=== PATIENT | male | born 1990 | race Caucasian/White ===

== ENCOUNTER 2019-09-18 14:34 | Emergency (ER) | payer MEDICAID, SELFPAY ==
[2019-09-18 15:10] VITALS: BP 140/76; PULSE 102; RESP 20; TEMP 36.6; O2SAT 100; BMI 26.6
--- NOTE | 2019-09-18 15:30 | HMH.EDUTC ---
[facility] [place] Disposition Clinical Impression: Pain, dental Disposition: Home, Self-Care Condition on Discharge: Good Instructions: DI for Dental Pain, Ibuprofen Additional Instructions: Take medication as prescribed by your dentist however you had a Torodol shot in the [facility] today which is similar to Ibuprofen so do not take any Ibuprofen for the next 8-10 hours at least 11pm tonight *Use dental balls as prescribed *Followup with Dentist as scheduled on Saturday Return if needed Follow up with Family doctor if needed Straight to ER if any life threatening symptoms Referrals: Provider,Referral, MD [Primary Care Provider] - As needed Time of Disposition: 15:40 Medical Decision Making - Jose Inquiry Pt receiving controlled substance: No Jose was queried for this patient: No Vital Signs: 09/18/19 15:10 Temperature 97.8 F Temperature Source Oral Pulse Rate [Right Brachial] 102 H Respiratory Rate 20 Blood Pressure [Right Arm] 140/76 Blood Pressure Mean [Right Arm] 97 Blood Pressure Source [Right Arm] Automatic Cuff Blood Pressure Position [Right Arm] Sitting 02 Sat by Pulse Oximetry 100 Oxygen Delivery Method Room Air Orders (Tests/Meds): ED MEDICATIONS Discontinued Medications Generic Name Dose Route Start Last Admin Trade Name Freq PRN Reason Stop Dose Admin Benzocaine/Butamben/Tetracaine HCl 1 gm 09/18/19 15:32 09/18/19 15:44 Cetacaine [place] TP 09/18/19 15:33 1 gm ONCE ONE Administration Ketorolac Tromethamine 60 mg 09/18/19 15:32 09/18/19 15:44 Toradol 60mg/2ml Vial IM 09/18/19 15:33 60 mg ONCE ONE Administration Lidocaine HCl 15 ml 09/18/19 15:32 09/18/19 15:44 Lidocaine 2% Viscous Solution 15ml Udc PO 09/18/19 15:33 15 ml ONCE ONE Administration - Reevaluation(s) Time: 15:33 Reevaluation #1: Patient reports last dose of Ibuprofen at 230am this morning Patient educated that Torodol and Ibuprofen similar to not take Ibuprofen until 11pm tonight or later [facility] [place] HPI - General Stated complaint: INFECTED TOOTH Time Seen by Provider: 09/18/19 15:30 Mode of Arrival: Ambulatory Source of Information: Patient Limitations: No Limitations Description of Symptoms (Recalled from Triage Doc. by RN): PATIENT STATES HE BROKE A QUENTIN IN HIS MOUTH AND STATES HE IS IN A LOT OF PAIN HEENT Symptoms (Recalled from RN notes): Yes Resp Symptoms (Recalled from RN notes): No Skin Symptoms (Recalled from RN notes): No MS Symptoms (Recalled from RN notes): No Functional Status (Recalled from RN notes): WNL - History of Present Illness Provider Complaint: Patient states that he has been undergoing the process for dental implants and yesterday he bite into some food and broke the quentin used to hold the tooth in place States that he went to the dentist and they give him Ibuprofen and PCN but he said he needs something stronger to help with pain States last time he took Ibuprofen was at 230 this morning - Related Data Home Medications Medication Instructions Recorded Confirmed Ibuprofen [Ibuprofen 800mg 800 mg PO Q6HP PRN 09/18/19 09/18/19 Tablet] Penicillin V Potassium 500 mg PO Q6H 09/18/19 09/18/19 Allergies Allergy/AdvReac Type Severity Reaction Status Date / Time No Known Allergies Allergy Verified 09/18/19 15:18 - Worker's Comp Is this a Worker's Comp case?: No [facility] History - Hepatitis A Screen Drug use history?: No High risk sexual behaviors?: No History of sexually transmitted infection?: No Currently employed?: No Childcare worker?: No Do you have indoor plumbing?: Yes Do you have electricity?: Yes Attestation statement:: This patient has been screened for Hepatitis A risk factors. I have reviewed the patient's past medical history: Yes - Social History Smoking Status: Current every day smoker Tobacco Type: cigarettes # Packs/Day (cigarettes): 1 Alcohol Intake: current Occupational Status: other ROS Obtained: Yes All systems reviewed & no
[2019-09-18 15:51] VITALS: BP 140/76; PULSE 102; RESP 20; TEMP 36.6; O2SAT 100
== END 2019-09-18 15:56 | disposition home or self-care (01) ==
PROVIDERS: Emergency Provider Nurse Practitioner
DX: K08.89 Other specified disorders of teeth and supporting structures (principal)
CPT/HCPCS: 96372; 99201

== ENCOUNTER 2019-12-23 13:16 | Emergency (ER) | payer MEDICAID, SELFPAY ==
[2019-12-23 13:28] VITALS: BP 137/78; PULSE 78; RESP 18; TEMP 36.6; O2SAT 98; BMI 27.3
--- NOTE | 2019-12-23 13:35 | HMH.EDUTC ---
[facility] [place] Disposition Clinical Impression: Exposure to COVID-19 virus Disposition: Home, Self-Care Condition on Discharge: Good Instructions: Preventing the Spread of Coronavirus Discharge Instructions Additional Instructions: Follow up with your regular doctor. GO TO THE ER FOR ANY WORSENING SYMPTOMS FOLLOW THE DIRECTIONS ON THE COVID-19 HAND OUT THAT WE GAVE YOU REGARDING SELF-ISOLATION UNTIL YOU KNOW YOUR COVID-19 RESULTS Referrals: Anam Owens [Primary Care Provider] - Forms: Work/School Release Time of Disposition: 13:36 Medical Decision Making - Medical Records Medical records reviewed: No: I reviewed the patient's medical records. - Jose Inquiry Pt receiving controlled substance: No Vital Signs: 12/23/19 13:28 12/23/19 13:53 Temperature 97.9 F 97.9 F Temperature Source Oral Pulse Rate 78 Pulse Rate [Right Radial] 78 Respiratory Rate 18 18 Blood Pressure 137/78 Blood Pressure [Right Arm] 137/78 Blood Pressure Mean [Right Arm] 97 Blood Pressure Source [Right Arm] Automatic Cuff Blood Pressure Position [Right Arm] Sitting 02 Sat by Pulse Oximetry 98 Oxygen Delivery Method Room Air Room Air [facility] [place] HPI - General Stated complaint: covid exposure Time Seen by Provider: 12/23/19 13:35 Mode of Arrival: Ambulatory Limitations: No Limitations Description of Symptoms (Recalled from Triage Doc. by RN): Pt reports he was exposed to covid on Saturday. Pt denies covid symptoms. HEENT Symptoms (Recalled from RN notes): No Resp Symptoms (Recalled from RN notes): No Skin Symptoms (Recalled from RN notes): No MS Symptoms (Recalled from RN notes): No Functional Status (Recalled from RN notes): n/a - History of Present Illness Provider Complaint: He is here to have a covid test. He was exposed thru his work approx 4 days ago. He has been coughing, but he thinks he may have allergies. - Related Data Home Medications Medication Instructions Recorded Confirmed No Known Home Medications 12/23/19 12/23/19 Allergies Allergy/AdvReac Type Severity Reaction Status Date / Time No Known Allergies Allergy Verified 09/18/19 15:18 - Worker's Comp Is this a Worker's Comp case?: No [facility] History - Hepatitis A Screen Drug use history?: No High risk sexual behaviors?: No History of sexually transmitted infection?: No Currently employed?: No Childcare worker?: No Do you have indoor plumbing?: Yes Do you have electricity?: Yes Attestation statement:: This patient has been screened for Hepatitis A risk factors. I have reviewed the patient's past medical history: Yes - Social History Smoking Status: Current every day smoker Tobacco Type: cigarettes # Packs/Day (cigarettes): 1 Alcohol Intake: never Occupational Status: employed ROS Obtained: Yes All systems reviewed & no additional complaints - Constitutional Constitutional: Denies chills, Denies fever(s) - Eyes Eyes: Denies eye discharge - ENT Ears, Nose, Mouth, and Throat: Reports as per HPI - Cardiovascular Cardiovascular: Denies chest pain - Respiratory Respiratory: Yes cough Physical Exam - General General appearance: alert, in no apparent distress - Head Head exam: atraumatic, normocephalic, normal inspection - Eye Eye exam: Present: normal appearance, PERRL, EOMI - ENT ENT exam: Present: normal exam, normal oropharynx, mucous membranes moist, TM's normal bilaterally, normal external ear exam - Neck Neck exam: Present: normal inspection, full ROM, trachea midline. Absent: meningismus, lymphadenopathy - Chest Chest inspection: Present: normal inspection, symmetric chest wall rise. Absent: tenderness - Respiratory Respiratory exam: Present: normal lung sounds bilaterally. Absent: respiratory distress - Cardiovascular Cardiovascular exam: Present: regular rate, normal rhythm. Absent: JVD - Abdominal Exam Abdominal exam: Present: soft, normal bowel sounds. Absent: disten
[2019-12-23 13:53] VITALS: BP 137/78; PULSE 78; RESP 18; TEMP 36.6; O2SAT 98
== END 2019-12-23 13:53 | disposition home or self-care (01) ==
PROVIDERS: Emergency Provider Nurse Practitioner Family; PCP Internal Medicine
DX: Z20.828 Contact with and (suspected) exposure to other viral communicable diseases (principal); F17.210 Nicotine dependence, cigarettes, uncomplicated
CPT/HCPCS: 99201; U0003

== ENCOUNTER 2020-07-20 11:14 | Emergency (ER) | payer SELFPAY ==
[2020-07-20 11:26] VITALS: BP 146/91; PULSE 75; RESP 17; TEMP 36.8; O2SAT 100; BMI 20.4
[2020-07-20 11:31] VITALS: BP 146/91; PULSE 75; RESP 17; TEMP 36.8; O2SAT 100
--- NOTE | 2020-07-20 11:35 | HMH.EDUTC ---
[facility] [place] Clinical Impression: Poison rayne Disposition: Home, Self-Care Condition on Discharge: Good Instructions: DI for Poison Rayne Allergy Additional Instructions: Avoid contact with the offending substance (poison rayne). Don't start the oral steroids until tomorrow. Don't put the topical steroids (triamcinolone) on your face or your groin. Follow up with your regular doctor. GO TO THE ER FOR ANY WORSENING SYMPTOMS OR CONCERNS Prescriptions: diphenhydrAMINE HCL [Diphenhydramine HCl] 25 mg PO Q6HP PRN #30 cap PRN Reason: Itching Transmission Status: Received by [facility] # methylPREDNISolone [Medrol] 4 mg PO DIRECTED 6 Days #21 tab.ds.pk Transmission Status: Received by [facility] # Triamcinolone Acetonide 1 applicatio TP TIDP PRN 7 Days #1 tube PRN Reason: Itching Transmission Status: Received by [facility] # Referrals: Anam Owens [Primary Care Provider] - Forms: Work/School Release Time of Disposition: 11:48 Medical Decision Making - Medical Records Medical records reviewed: No: I reviewed the patient's medical records. - Jose Inquiry Pt receiving controlled substance: No Vital Signs: 07/20/20 11:26 07/20/20 11:31 Temperature 98.2 F 98.2 F Temperature Source Oral Oral Pulse Rate 75 Pulse Rate [Left] 75 Respiratory Rate 17 17 Blood Pressure 146/91 H Blood Pressure [Right Arm] 146/91 H Blood Pressure Mean [Right Arm] 109 Blood Pressure Source Automatic Cuff Blood Pressure Source [Right Arm] Automatic Cuff Blood Pressure Position Sitting Blood Pressure Position [Right Arm] Sitting 02 Sat by Pulse Oximetry 100 Oxygen Delivery Method Room Air Room Air Orders (Tests/Meds): ED MEDICATIONS Discontinued Medications Generic Name Dose Route Start Last Admin Trade Name Freq PRN Reason Stop Dose Admin Methylprednisolone Sodium Succinate 125 mg 07/20/20 11:37 07/20/20 11:45 Methylprednisolone Sod Succ 125mg Vial IM 07/20/20 11:38 125 mg ONCE ONE Administration [facility] [place] HPI - General Stated complaint: rash Time Seen by Provider: 07/20/20 11:35 Mode of Arrival: Ambulatory Source of Information: Patient Limitations: No Limitations Description of Symptoms (Recalled from Triage Doc. by RN): Rash on arms and legs x1week getting worse HEENT Symptoms (Recalled from RN notes): No Resp Symptoms (Recalled from RN notes): No Skin Symptoms (Recalled from RN notes): Yes MS Symptoms (Recalled from RN notes): No Functional Status (Recalled from RN notes): wnl - History of Present Illness Provider Complaint: He states that he has had a rash from poison rayne for the past 3 days. He usually gets poison rayne easily and he usually needs a steroid shot to get it better. - Related Data Previous Rx's Medication Instructions Recorded Triamcinolone Acetonide 1 applicatio TP TIDP PRN 7 Days #1 07/20/20 tube diphenhydrAMINE HCL 25 mg PO Q6HP PRN #30 cap 07/20/20 [Diphenhydramine HCl] methylPREDNISolone [Medrol] 4 mg PO DIRECTED 6 Days #21 07/20/20 tab.ds.pk Allergies Allergy/AdvReac Type Severity Reaction Status Date / Time No Known Allergies Allergy Verified 07/20/20 11:40 - Worker's Comp Is this a Worker's Comp case?: No [facility] History - Hepatitis A Screen Drug use history?: No High risk sexual behaviors?: No History of sexually transmitted infection?: No Currently employed?: No Childcare worker?: No Do you have indoor plumbing?: Yes Do you have electricity?: Yes Attestation statement:: This patient has been screened for Hepatitis A risk factors. I have reviewed the patient's past medical history: Yes - Social History Smoking Status: Current every day smoker Tobacco Type: cigarettes, smokeless tobacco # Packs/Day (cigarettes): 2 Alcohol Intake: never Occupational Status: other ROS Obtained: Yes All systems reviewed & no additional complaints - Constitutional C
== END 2020-07-20 11:50 | disposition home or self-care (01) ==
PROVIDERS: Emergency Provider Nurse Practitioner Family; PCP Internal Medicine
DX: L23.7 Allergic contact dermatitis due to plants, except food (principal)
CPT/HCPCS: 96372; 99202; G0463

== ENCOUNTER 2020-08-17 10:47 | Emergency (ER) | payer SELFPAY ==
--- NOTE | 2020-08-17 10:58 | HMH.EDUTC ---
[facility] [place] Clinical Impression: Dental abscess, Tooth decay, Fracture of crown, enamel, and dentin of tooth with pulp exposure Disposition: Home, Self-Care Condition on Discharge: Good Instructions: Tooth Abscess Additional Instructions: Follow up with your dentist or oral surgeon. This note will serve as your referral to [facility]. Take the medications as directed. GO TO THE ER FOR WORSENING SYMPTOMS, SUCH FEVER, CHILLS, ETC. Prescriptions: Ibuprofen [Ibuprofen 800mg Tablet] 800 mg PO Q8HP PRN #30 tab PRN Reason: Moderate Pain Transmission Status: Received by [facility] #[id number] Amoxicillin/Potassium Clav [Augmentin 875-125 Tablet] 1 tab PO Q12H 10 Days #20 tab Transmission Status: Received by [facility] #[id number] Referrals: Anam Owens [Primary Care Provider] - Forms: Work/School Release Time of Disposition: 11:33 Medical Decision Making - Medical Records Medical records reviewed: No: I reviewed the patient's medical records. - Jose Inquiry Pt receiving controlled substance: No Vital Signs: 08/17/20 11:01 08/17/20 11:28 Temperature 98.0 F 98 F Temperature Source Oral Pulse Rate 76 Pulse Rate [Left Radial] 80 Respiratory Rate 16 14 Blood Pressure 115/78 Blood Pressure [Right Arm] 117/75 Blood Pressure Mean [Right Arm] 89 02 Sat by Pulse Oximetry 98 Oxygen Delivery Method Room Air [facility] [place] - General Stated complaint: Mouth pain Time Seen by Provider: 08/17/20 10:59 - History of Present Illness Provider Complaint: He states that he has extensive tooth decay. He has mulitiple teeth that are broken off down into his gums. He states that [facility] [place] [facility] [place] [facility] [place] [facility] and he was told that he needed to see an oral surgeon. He states that he needs a referral from this [facility]. In the past, he was seen at [facility]. He needs a referral to be seen there again. - Related Data Previous Rx's Medication Instructions Recorded Triamcinolone Acetonide 1 applicatio TP TIDP PRN 7 Days #1 07/20/20 tube diphenhydrAMINE HCL 25 mg PO Q6HP PRN #30 cap 07/20/20 [Diphenhydramine HCl] methylPREDNISolone [Medrol] 4 mg PO DIRECTED 6 Days #21 07/20/20 tab.ds.pk Amoxicillin/Potassium Clav 1 tab PO Q12H 10 Days #20 tab 08/17/20 [Augmentin 875-125 Tablet] Ibuprofen [Ibuprofen 800mg 800 mg PO Q8HP PRN #30 tab 08/17/20 Tablet] Allergies Allergy/AdvReac Type Severity Reaction Status Date / Time No Known Allergies Allergy Verified 08/17/20 10:52 [facility] History - Hepatitis A Screen Attestation statement:: This patient has been screened for Hepatitis A risk factors. I have reviewed the patient's past medical history: Yes - Social History Smoking Status: Current every day smoker Tobacco Type: cigarettes, smokeless tobacco # Packs/Day (cigarettes): 2 Alcohol Intake: never Occupational Status: other ROS Obtained: Yes All systems reviewed & no additional complaints - Constitutional Constitutional: Reports system reviewed and no additional complaints, except as docu - Eyes Eyes: Reports system reviewed and no additional complaints, except as docu - ENT Ears, Nose, Mouth, and Throat: Reports system reviewed and no additional complaints, except as docu - Cardiovascular Cardiovascular: Reports system reviewed and no additional complaints, except as docu - Respiratory Respiratory: Reports system reviewed and no additional complaints, except as docu - Gastrointestinal Gastrointestingal: Reports: system reviewed and no additional complaints, except as docu Physical Exam - General General appearance: alert, in no apparent distress - Head Head exam: atraumatic, normocephalic, normal inspection - Eye Eye exam: Present: normal appearance, PERRL, EOMI - ENT ENT exam: Present: mucous membranes moist, TM's normal bilaterally, normal external ear exam
[2020-08-17 11:01] VITALS: BP 117/75; PULSE 80; RESP 16; TEMP 36.7; O2SAT 98; BMI 19.8
[2020-08-17 11:28] VITALS: BP 115/78; PULSE 76; RESP 14; TEMP 36.6
== END 2020-08-17 11:37 | disposition home or self-care (01) ==
PROVIDERS: Emergency Provider Nurse Practitioner Family; PCP Internal Medicine
DX: K04.7 Periapical abscess without sinus (principal); K08.539 Fractured dental restorative material, unspecified; K02.9 Dental caries, unspecified; F17.210 Nicotine dependence, cigarettes, uncomplicated
CPT/HCPCS: 99202; G0463

== ENCOUNTER 2020-12-28 14:51 | Emergency (ER) | payer BC, SELFPAY ==
[2020-12-28 14:53] VITALS: BP 139/80; PULSE 120; RESP 32; TEMP 36.7; O2SAT 99
--- NOTE | 2020-12-28 14:55 | PC.NURSE ---
CPD called by Inocencia Ayala, gin pole operator.
--- NOTE | 2020-12-28 14:57 | PC.NURSE ---
CPD at bedside
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
--- NOTE | 2020-12-28 15:01 | PC.NURSE ---
MARIA DE JESUS RAMÍREZ speaking Dr. Macias at at this time
--- NOTE | 2020-12-28 15:03 | XR_ITS ---
PROCEDURE: XR CHEST PORTABLE CLINICAL HISTORY: Trauma COMPARISON: CR CXR CHEST(2 VIEWS-NOT PORTABLE) from 04/01/2014 FINDINGS: The cardiomediastinal silhouette and pulmonary vascularity are within normal limits. The lungs are clear without infiltrates, suspicious nodules, or pleural effusions. No acute bony abnormalities. IMPRESSION: No acute findings. Dictated by: Sergio Cameron MD 12/28/2020 15:39 Sergio Cameron MD in [facility] 12/28/2020 15:39
--- NOTE | 2020-12-28 15:05 | XR_ITS ---
PROCEDURE: XR PELVIS 1-2V CLINICAL INDICATION: trauma COMPARISON: No exams were available for comparison TECHNIQUE: XR Pelvis AP View FINDINGS: No fracture or dislocation is evident. No significant degenerative change. No lytic or blastic change. IMPRESSION: No acute findings. Dictated by: Sergio Cameron MD 12/28/2020 15:38 Sergio Cameron MD in [facility] 12/28/2020 15:38
[2020-12-28 15:08] VITALS: BMI 22.7
--- NOTE | 2020-12-28 15:11 | PC.NURSE ---
Rad at bedside
--- NOTE | 2020-12-28 15:12 | PC.NURSE ---
contacting [facility]
--- NOTE | 2020-12-28 15:13 | PC.NURSE ---
Explained to pt what the POC was. That pt was going to be transferred to [place] and we would be contacting a helicopter at this time.
[2020-12-28 15:14] LABS: Chloride 98 mmol/L (98-107); Sodium 142 mmol/L (136-145)
[2020-12-28 15:15] LABS: Potassium 3.4 mmoL/L (3.5-5.1)
--- NOTE | 2020-12-28 15:16 | PC.NURSE ---
[facility] accepted flight on pt, eta 20 mins
[2020-12-28 15:17] LABS: Albumin Level 5.1 g/dl (3.5-5.0); Albumin/Globulin Ratio 1.8 (1.1-1.8); Alkaline Phosphatase 67 U/L (38-126); Anion Gap 27.4 mEq/L (5-15); Bilirubin,Total 1.6 mg/dl (0.2-1.3); Blood Urea Nitrogen 12 mg/dl (9-20); Carbon Dioxide 20 mmol/L (22.0-30.0); Creatinine Clearance Estimated 114 mL/min (50-200); Estimated Glomerular Filt Rate 100 ml/min (>60); GFR (African American) 122 ML/MIN (>60); Globulin 2.8 g/dL (1.3-3.2); Total Protein,Serum 7.9 g/dl (6.3-8.2)
--- NOTE | 2020-12-28 15:17 | PC.NURSE ---
Notified house of helicopter arriving in approx. 20 mins
[2020-12-28 15:18] LABS: Calcium 9.7 mg/dl (8.4-10.2); Glucose 108 mg/dl (74-100)
[2020-12-28 15:25] LABS: Alanine Aminotransferase 47 U/L (12-78); Aspartate Amino Transferase 54 U/L (17-59); Basophils # 0.2 K/mm3 (0-0.2); Basophils % 1.6 % (0.1-2.0); Eosinophils # 0.2 K/mm3 (0.0-0.4); Eosinophils % 2.2 % (0.1-12.0); Hematocrit 52.8 % (42.0-52.0); Hemoglobin 17.3 g/dL (14.1-18.0); Lymphocytes # 4.1 K/mm3 (0.7-4.5); Lymphocytes % 42.8 % (10-50); Mean Corpuscular HGB Conc 32.8 g/dL (31.8-35.4); Mean Corpuscular Volume 97.6 fl (80-94); Mean Platelet Volume 8.5 fl (7.4-10.4); Monocytes # 0.6 K/mm3 (0.1-1.0); Monocytes % 6.4 % (1.7-9.3); Neutrophils # 4.5 K/mm3 (1.8-7.8); Platelet Count 382 K/mm3 (142-424); Red Blood Count 5.41 M/mm3 (4.60-6.20); Red Cell Distribution Width 13.8 % (11.5-17.5); White Blood Count 9.5 K/mm3 (4.8-10.8)
--- NOTE | 2020-12-28 15:30 | PC.NURSE ---
calling report to ER
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
--- NOTE | 2020-12-28 15:48 | PC.NURSE ---
[facility] staff at bedside, report given
[2020-12-28 16:38] VITALS: BP 127/89; PULSE 122; RESP 16; TEMP 36.8; O2SAT 98
== END 2020-12-28 16:41 | disposition short-term general hospital (02) ==
PROVIDERS: Emergency Provider Emergency Medicine; PCP Internal Medicine
DX: S31.111A Laceration without foreign body of abdominal wall, left upper quadrant without penetration into peritoneal cavity, initial encounter (principal); X99.2XXA Assault by sword or dagger, initial encounter
CPT/HCPCS: 71045; 72170; 80053; 85025; 90715; 96374; 96375; 99284; J2405

== ENCOUNTER 2021-02-01 14:00 | Outpatient (RCR) | payer BC, SELFPAY | END 2021-02-01 14:05 | disposition home or self-care (01) | LOC: PT 14:00 | PROVIDERS: Visit Provider Internal Medicine | DX: M54.50 Low back pain, unspecified (principal) | CPT/HCPCS: 97010; 97014; 97110; 97163; G0283 ==

== ENCOUNTER 2023-05-21 14:15 | Emergency (ER) | payer SELFPAY ==
[2023-05-21 14:45] VITALS: BP 113/70; PULSE 76; RESP 18; TEMP 37; O2SAT 98; BMI 26.3
--- NOTE | 2023-05-21 15:04 | ED_ITS ---
Discharge Plan Disposition Patient Disposition: Home, Self-Care Condition: Good Prescriptions Prescriptions: No Action buprenorphine-naloxone 8-2 mg tablet, sublingual 2 tab SUBLINGUAL DAILY Patient Comments: DISSOLVE 2 TABLETS UNDER THE TONGUE EVERY DAY Referrals Follow up/Referrals: Anam Owens [Primary Care Provider] - See instructions Activity Restrictions/Add. Instructions Additional Instructions/Restrictions: *Monitor Temp, Over the counter Motrin or Tylenol as directed/as needed Tylenol every 4 hours and Motrin every 6 hours (as long as your family doctor has told you that you can take it) for fever or pain. and straight to ER if unable to lower temp less than 101.0 after medication given *Warm salt water gargles may help to soothe the throat *Throat Lozenges? *Warm fluids like tea with honey may help to soothe the throat? *Sleep elevated *Humidifier/Vaporizer Your throat swab was sent for culture. Those results are typically sent to your primary care. Be sure to follow up in 2-3 days with your family doctor/primary care physician if no improvement so they can review those result and treat if necessary. If you don?t have a primary care doctor, I recommend you get one but in the mean time, you will have to return to a walk in clinic Follow up IMMEDIATELY for new or worsening symptoms or no Noticeable improvement over the next 48-72 hours. 911 for difficulty breathing or swallowing Clinical Impressions Clinical Impression: Viral upper respiratory infection Stand Alone Forms Stand Alone Forms: Work/School Release Instructions Patient Instructions: Sore Throat, DI for Viral Upper Respiratory Infection -- Adult Discharge ED Provider: Sosa Euceda [facility] General Stated complaint: weakness, sore throat, headache Mode of Arrival: Ambulatory Source of Information: Patient Limitations: No Limitations Time Seen by Provider: 05/21/23 15:04 Description of Symptoms (Recalled from Triage Doc. by RN): PATIENT C/O BODY ACHES, SORE THROAT, EAR PAIN/DRAINAGE, AND RUNNY NOSE X 2 DAYS HEENT Symptoms (Recalled from RN notes): Yes Resp Symptoms (Recalled from RN notes): No Skin Symptoms (Recalled from RN notes): No MS Symptoms (Recalled from RN notes): No Functional Status (Recalled from RN notes): WNL History of Present Illness Provider Complaint: Patient states that he hasnt felt well for the last couple of days States that he has been having sore throat, nasal congestion, body aches, pain in his ears and nasal drainage States that his sister and niece recently had strep throat and now he isnt feeling well so he came in Related Data Home Medications Medication Instructions Recorded Confirmed buprenorphine 8 mg-naloxone 2 mg 2 tab sublingual DAILY 05/21/23 05/21/23 sublingual tablet Allergies Allergy/AdvReac Type Severity Reaction Status Date / Time No Known Allergies Allergy Verified 08/17/20 10:52 Worker's Comp Is this a Worker's Comp case?: No [facility] Disclaimer: The information contained in this section may have been updated after the patient was seen, as this information can be updated by other users. Medical History (Updated 05/21/23 @ 15:08 by Sosa Euceda APRN) Kidney stone Social History Smoking Status: Current every day smoker tobacco type: cigarettes packs per day: 2 and smokeless tobacco second hand exposure: No alcohol intake: never current occupational status: other Travel in the last 8 weeks: None ROS Obtained: Yes All systems reviewed & no additional complaints except as documented and Yes Systems reviewed as appropriate & no additional complaints e xcept as documented Constitutional Constitutional: Reports system reviewed and no additional complaints, except as documented, Reports as per HPI, Reports body ache, Reports chills and Reports headache(s) ENT Ears, Nose, Mouth, and Throat: Reports system reviewed and no additional complaints, except as documented, Reports as per HPI, Reports otalgia, Reports headache(s), Reports nasal congestion, Reports nasal discharge and Reports sore throat Cardiovascular Cardiovascular: Reports system reviewed and no additional complaints, except as documented and Reports as per HPI Respiratory Respiratory: Reports system reviewed and no additional complaints, except as documented, Reports as per HPI, Denies chest congestion and Denies cough Gastrointestinal Gastrointestingal: Reports system reviewed and no additional complaints, except as documented and as per HPI Neurologic Neurologic: Reports headache(s) Physical Exam General General appearance: alert and in no apparent distress ENT ENT exam: Present mucous membranes moist and TM's normal bilaterally Expanded ENT Exam Nose exam: Absent sinus tenderness Throat exam: Present tonsillar erythema (mild) Respiratory Respiratory exam: Present normal lung sounds bilaterally; Absent respiratory distress or wheezes Cardiovascular Cardiovascular exam: Present regular rate, normal rhythm and normal heart sounds Neurological Exam Neurological exam: Present alert, oriented X3 and normal gait Medical Decision Making Jose Inquiry Pt receiving controlled substance: No Jose was queried for this patient: No Vital Signs: 05/21/23 14:45 Temperature 98.6 F Temperature Source Oral Pulse Rate [Left Brachial] 76 Respiratory Rate 18 Blood Pressure [Left Arm] 113/70 Blood Pressure Mean [Left Arm] 84 Blood Pressure Source [Left Arm] Automatic Cuff Blood Pressure Position [Left Arm] Sitting 02 Sat by Pulse Oximetry 98 Oxygen Delivery Method Room Air Lab Data Lab results reviewed: Yes I reviewed the patient's lab results.
[2023-05-21 15:07] LABS: UTC Influenza A Antigen Negative (Negative); UTC Influenza B Antigen Negative (Negative); UTC Strep Screen (Rapid) Negative (Negative)
[2023-05-21 15:12] VITALS: BP 113/70; PULSE 76; RESP 18; TEMP 37; O2SAT 98
== END 2023-05-21 15:14 | disposition home or self-care (01) ==
PROVIDERS: Emergency Provider Nurse Practitioner; PCP Internal Medicine
DX: R51.9 Headache, unspecified (principal); H92.03 Otalgia, bilateral; R07.0 Pain in throat; R09.81 Nasal congestion; J06.9 Acute upper respiratory infection, unspecified; B34.9 Viral infection, unspecified; F17.210 Nicotine dependence, cigarettes, uncomplicated
CPT/HCPCS: 87804; 87880; 99212; 99213; G0463

== ENCOUNTER 2024-12-26 16:27 | Emergency (ER) | payer BC, SELFPAY ==
--- OUTSIDE RECORDS SUMMARY | 2008-06-21 06:54 | XMS_ITS | Continuity of Care Document ---
Author Organization [facility] Address [address] [place] [address] Phone Care Team Providers Care Tallow Maker Name Role Phone No Information Unavailable Unavailable Advance Directives Directive Yes / No Effective Date File Name No Information Encounters Encounter Description Practice Location Reason(s) For Visit Diagnoses Date Provider Providers Copied on Encounter [facility] , [address], [place], [address], [place] tel:[phone] ALEX Jaramillo No Information No Information Family History Family Member Type Diagnosis Age At Onset No Information Payers Payer name Insurance type Covered democrat ID Authoriza tion(s) No Information Social History Type Description Quantity Date Captured Comments Sex Male Smoking Status No Information Chief Complaint And Reason For Visit No Information Reason For Referral Reason For Referral No Information History Of Present Illness Encounter Date Complaint History Of Prese nt Illness No Information Functional Status Date Functional Assessmen t No Information Instructions Date Instruction Additional Infor mation No Information Assessments Type Assessment Date No Information Patient Care Teams Name Effective Dates (start - stop) Status Members No Information
[2024-12-26 16:26] VITALS: BP 137/79; PULSE 107; RESP 20; TEMP 36.8; O2SAT 96; BMI 28.1
--- NOTE | 2024-12-26 16:30 | XR_ITS ---
PROCEDURE INFORMATION: Exam: XR Right Hand Exam date and time: 12/26/2024 5:25 PM Age: 34 years old Clinical indication: Injury or trauma; Other: Avulsion, distal 2nd finger TECHNIQUE: Imaging protocol: Radiologic exam of the right hand. Views: 1 or 2 views. Total images: 2 COMPARISON: No relevant prior studies available. FINDINGS: Bones/joints: Probable tiny cortical defect tuft of the distal phalanx right index finger. Additional tuft fracture distal phalanx 3rd digit. No joint dislocation. Unremarkable joint spaces. Soft tissues: Soft tissue amputation defect tip of the index finger. No radiopaque foreign body. IMPRESSION: 1. Acute amputation defect tip of the index finger. 2. Probable tiny cortical defect to the tuft of the distal phalanx index finger. 3. Additional tuft fracture distal phalanx 3rd digit.
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
--- OUTSIDE RECORDS SUMMARY | 2024-12-26 16:38 | XMS_ITS | Encounter Summary ---
Author Organization [facility] Address [address] [place] [address] Care Team Providers Care Ethical Hacker Name Role Phone Ruben Benito M.D. Primary Care [facility] Encounter Details Date Type Department Care Team (Late st Contact Info) Description 08/13/2008 Abstract [place] [address] [place]/Medical Office [facility] Division of Occupational and Physical Therapy [address] [place] [phone] Piano And Organ Refinisher, [facility] Social History Tobacco Use Types Packs/Day Years Used Date Smoking Tobacco: Never Assessed Sex and Gender Information Value Date Recorded Sex Assigned at Not on file Legal Sex Male 5:30 AM EST Gender Identity Not on file Sexual Orientation Not on file documented as of this encounter Plan of Treatment Not on file documented as of this encounter Visit Diagnoses Not on filedocumented in this encounter Care Teams Ethical Hacker Relationship Specialty Start Date End Date Ruben Benito M.D. [facility] [address] [place] [address] PCP - General 06/10/08 documented as of this encounter
--- OUTSIDE RECORDS SUMMARY | 2024-12-26 16:38 | XMS_ITS | Encounter Summary ---
Author Organization [facility] Address [address] [place] [id number] Care Team Providers Care Plastic Eye Technician Name Role Phone Ruben Benito M.D. Primary Care [facility] Encounter Details Date Type Department Care Team (Late st Contact Info) Description 08/23/2009 Clinical Note [facility] Division of Dentistry [address] [place] [phone] Provider, Historical Social History Tobacco Use Types Packs/Day Years [...] on file documented as of this encounter Progress Notes * Provider, Historical - 08/23/2009 12:00 AM EDT Please see trauma form Note authored by: Lilly Chan ([email or web address]) documented in this encounter Plan of Treatment Not on file documented as of this encounter Visit Diagnoses Not on filedocumented in this encounter Care Teams Plastic Eye Technician Relationship Specialty Start Date End Date Ruben Benito M.D. [address] [place], [place] [id number] PCP - General 06/10/08 documented as of this encounter
[2024-12-26] MEDS: FENTANYL 100MCG/2ML VIAL 75 MCG IV (16:41)
[2024-12-26 16:45] VITALS: BP 137/89; PULSE 77; O2SAT 98
[2024-12-26 17:00] VITALS: BP 116/78; PULSE 80; O2SAT 97
[2024-12-26 17:30] VITALS: BP 118/75; PULSE 75; O2SAT 97
--- NOTE | 2024-12-26 17:50 | PC.NURSE ---
Dr Marquis on phone with [facility] @ this time
[2024-12-26 18:00] VITALS: BP 128/85; PULSE 78; RESP 16; O2SAT 98
--- NOTE | 2024-12-26 18:12 | PC.NURSE ---
called report to radha fernandez rn
[2024-12-26 18:19] VITALS: BP 120/71; PULSE 80; RESP 20; TEMP 36.8; O2SAT 98
[2024-12-26] MEDS: OXYCODONE 5MG IMMEDIATE RELEASE TABLET 5 MG PO (18:22)
== END 2024-12-26 18:28 | disposition other institution (70) ==
PROVIDERS: Emergency Provider Student in an Organized Health Care Education/Training Program; PCP Internal Medicine Adolescent Medicine
DX: S68.110A Complete traumatic metacarpophalangeal amputation of right index finger, initial encounter (principal); W26.8XXA Contact with other sharp object(s), not elsewhere classified, initial encounter
CPT/HCPCS: 73120; 96365; 96375; 99285; J3010